=== PATIENT | male | born 1955 | race American Indian/Alaskan Native ===

== ENCOUNTER 2019-10-16 18:23 | Emergency (ER) | payer OTHER ==
--- NOTE | 2019-10-16 19:24 | Event Note ---
ED Screening Note ED Screening Note: hematuria that began today no abd pain no n/v no fever PMHx [place], Gout, HTN no allergies to meds This initial assessment/diagnostic orders/clinical plan/treatment(s) is/are subject to change based on patients health status, clinical progression and re- assessment by fellow clinical providers in the ED. Further treatment and workup at subsequent clinical providers discretion. Patient/guardian urged not to elope from the ED as their condition may be serious if not clinically assessed and managed. Initial orders include: labs, UA
[2019-10-16 19:28] VITALS: BP 106/70
[2019-10-16 20:19] LABS: Alanine Aminotransferase 43 units/L (7-56); Albumin 3.9 g/dL (3.9-5); BUN/Creatinine Ratio 9; Blood Urea Nitrogen 7 mg/dL (9-20); Calcium 8.7 mg/dL (8.4-10.2); Hemolysis Index 60
[2019-10-16 20:23] LABS: INR 0.96 (0.87-1.13)
[2019-10-16 20:24] LABS: Partial Thromboplastin Time 27.6 Sec. (24.2-36.6)
[2019-10-16 20:49] LABS: Basophils % (Auto) 0.3 % (0.0-1.8); Eosinophils # (Auto) 0.1 K/mm3 (0.0-0.4); Hematocrit 39.6 % (35.5-45.6); Hemoglobin 13.5 gm/dl (11.8-15.2); Lymphocytes # (Auto) 1.9 K/mm3 (1.2-5.4); Lymphocytes % (Auto) 36.5 % (13.4-35.0); Mean Corpuscular HGB Conc 34 % (32-34); Mean Corpuscular Volume 103 fl (84-94); Monocytes # (Auto) 0.5 K/mm3 (0.0-0.8); Monocytes % (Auto) 8.8 % (0.0-7.3); Platelet Count 113 K/mm3 (140-440); Red Blood Count 3.83 M/mm3 (3.65-5.03); Red Cell Distribution Width 13.6 % (13.2-15.2)
[2019-10-16 21:17] LABS: Bilirubin,Urine NEG (Negative); Color,Urine Yellow (Yellow)
[2019-10-16 21:18] LABS: Bacteria,Urine 1+ /HPF (Negative); Blood,Urine LG (Negative); Protein,Urine <15 mg/dL mg/dL (Negative); Urobilinogen,Urine < 2.0 mg/dL (<2.0)
== END 2019-10-16 20:45 | disposition left against medical advice (07) ==
LOC: ED 18:23
DX: R31.9 Hematuria, unspecified (principal); Z53.21 Procedure and treatment not carried out due to patient leaving prior to being seen by health care provider
CPT/HCPCS: 36415; 80053; 81001; 85025; 85610; 85730; 93005; 93010